=== PATIENT | male | born 1945 | race Caucasian/White ===

== ENCOUNTER → 2017-01-17 | Outpatient (CLI) | payer MEDICARE, OTHER | LOC: LAB 09:26 | DX: E11.65 Type 2 diabetes mellitus with hyperglycemia (principal) ==

== ENCOUNTER → 2017-06-15 | Outpatient (CLI) | payer MEDICARE, OTHER | LOC: LAB 08:26 | DX: E11.65 Type 2 diabetes mellitus with hyperglycemia (principal) ==

== ENCOUNTER 2017-07-11 08:35 | Outpatient (RCR) | payer MEDICARE, OTHER | END 2017-07-13 15:14 | disposition still patient (30) | LOC: OPPGERO 08:35 | DX: F33.1 Major depressive disorder, recurrent, moderate (principal); F43.21 Adjustment disorder with depressed mood ==

== ENCOUNTER 2017-07-15 09:00 | Outpatient (RCR) | payer MEDICARE, OTHER | END 2017-08-14 16:17 | LOC: OPPGERO 09:00 | DX: F33.1 Major depressive disorder, recurrent, moderate (principal); F43.21 Adjustment disorder with depressed mood ==

== ENCOUNTER → 2017-08-14 | Outpatient (CLI) | payer MEDICARE, OTHER ==
[2017-08-14 14:38] LABS: HEMATOCRIT 43.6 % (42.0-52.0); MEAN PLATELET VOLUME 10.7 fl (7.4-10.4); RED BLOOD COUNT 4.56 M/mm3 (4.20-5.60); RED CELL DISTRIBUTION WIDTH 12.9 % (11.5-14.5); WHITE BLOOD COUNT 5.4 K/mm3 (4.8-10.8)
[2017-08-14 14:42] LABS: ALBUMIN 4.1 g/dL (3.5-5.0); CALCIUM 10.2 mg/dL (8.4-10.2); POTASSIUM 4.2 mmol/L (3.6-5.0); TOTAL BILIRUBIN 0.5 mg/dL (0.2-1.3)
== END ==
LOC: LAB 14:04
PROVIDERS: Nurse Practitioner Family
DX: E03.4 Atrophy of thyroid (acquired) (principal); Z00.00 Encounter for general adult medical examination without abnormal findings; Z85.46 Personal history of malignant neoplasm of prostate; E11.9 Type 2 diabetes mellitus without complications

== ENCOUNTER 2017-08-15 08:51 | Outpatient (RCR) | payer MEDICARE, OTHER | END 2017-09-13 12:52 | LOC: OPPGERO 08:51 | DX: F33.1 Major depressive disorder, recurrent, moderate (principal) ==

== ENCOUNTER 2017-09-14 09:00 | Outpatient (RCR) | payer MEDICARE, OTHER | END 2017-10-12 15:29 | LOC: OPPGERO 09:00 | DX: F33.1 Major depressive disorder, recurrent, moderate (principal) ==

== ENCOUNTER 2017-10-16 09:00 | Outpatient (RCR) | payer MEDICARE, OTHER | END 2017-11-14 15:19 | LOC: OPPGERO 09:00 | DX: F33.1 Major depressive disorder, recurrent, moderate (principal) ==

== ENCOUNTER 2017-11-15 10:07 | Outpatient (RCR) | payer MEDICARE, OTHER | END 2017-12-12 14:21 | LOC: OPPGERO 10:07 | DX: F33.1 Major depressive disorder, recurrent, moderate (principal); F43.21 Adjustment disorder with depressed mood ==

== ENCOUNTER → 2018-01-02 | Outpatient (CLI) | payer MEDICARE, OTHER ==
[2018-01-02 15:21] LABS: HEMATOCRIT 39.9 % (42.0-52.0); HEMOGLOBIN 13.3 g/dL (13.5-18.0); MEAN CELL VOLUME 94 fl (78-100); MEAN CORPUSCULAR HEMOGLOBIN 31 pg (27-31); MEAN CORPUSCULAR HGB CONC 33 g/dL (33-37); MEAN PLATELET VOLUME 9.9 fl (7.4-10.4); PLATELET COUNT 128 K/mm3 (130-400); RED BLOOD COUNT 4.23 M/mm3 (4.20-5.60); RED CELL DISTRIBUTION WIDTH 11.9 % (11.5-14.5); WHITE BLOOD COUNT 5.9 K/mm3 (4.8-10.8)
[2018-01-02 15:36] LABS: ALBUMIN 3.7 g/dL (3.5-5.0); BUN/CREATININE RATIO 18.7 (6.0-26.0); CALCIUM 9.4 mg/dL (8.4-10.2); POTASSIUM 4.5 mmol/L (3.6-5.0); TOTAL BILIRUBIN 0.6 mg/dL (0.2-1.3)
[2018-01-02 16:11] LABS: LYMPHOCYTE 11 % (20-51); MONOCYTE 5 % (3-10); NEUTROPHILS 82 % (42-75)
== END ==
LOC: EDSTATUS 08:53 → LAB 15:11
PROVIDERS: Nurse Practitioner Family
DX: R53.81 Other malaise (principal); E03.9 Hypothyroidism, unspecified; E11.9 Type 2 diabetes mellitus without complications; F43.20 Adjustment disorder, unspecified

== ENCOUNTER → 2018-01-03 | Outpatient (CLI) | payer MEDICARE, OTHER ==
[2018-01-04 01:23] LABS: TRANSFERRIN 210 mg/dL (180-329)
== END ==
LOC: LAB 13:52
PROVIDERS: Nurse Practitioner Family
DX: D64.9 Anemia, unspecified (principal)

== ENCOUNTER → 2018-01-28 | Day surgery (SDC) | payer MEDICARE, OTHER | LOC: MSO 08:14 | DX: D64.9 Anemia, unspecified (principal); Z86.010 Personal history of colon polyps; Z87.891 Personal history of nicotine dependence; G47.33 Obstructive sleep apnea (adult) (pediatric); F32.9 Major depressive disorder, single episode, unspecified; C61 Malignant neoplasm of prostate; E11.9 Type 2 diabetes mellitus without complications; E07.9 Disorder of thyroid, unspecified; Z53.8 Procedure and treatment not carried out for other reasons | CPT/HCPCS: 00813; J2704; J3010; J7030 ==

== ENCOUNTER → 2018-02-05 | Outpatient (CLI) | payer MEDICARE, OTHER | LOC: LAB 11:52 | DX: D64.9 Anemia, unspecified (principal) ==

== ENCOUNTER → 2018-02-13 | Outpatient (CLI) | payer MEDICARE, OTHER ==
[~2018-02-13] MED LIST: ATORVASTATIN CA10 MG PO; CO Q-1050 M1 PO; COLACE100 M1 PO; FISH OIL1 IU PO; GLUCOPHAGE PO; LAMOTRIGINE25 M1 PO; LISINOPRIL10 MG PO; MASON NATURAL1000 IU PO; NATURAL IRON65 MG PO; NATURE'S BLEND500 M1 PO; NORTRIPTYLINE H50 M1 PO; PHARMASSURE FO0.4 MG PO; VENLAFAXINE HCL75 M2 PO
[2018-02-13 12:07] LABS: HEMATOCRIT 32.1 % (42.0-52.0); HEMOGLOBIN 10.2 g/dL (13.5-18.0); MEAN CELL VOLUME 90 fl (78-100); MEAN CORPUSCULAR HEMOGLOBIN 29 pg (27-31); MEAN CORPUSCULAR HGB CONC 32 g/dL (33-37); MEAN PLATELET VOLUME 9.1 fl (7.4-10.4); PLATELET COUNT 122 K/mm3 (130-400); RED BLOOD COUNT 3.57 M/mm3 (4.20-5.60); RED CELL DISTRIBUTION WIDTH 14.4 % (11.5-14.5); WHITE BLOOD COUNT 4.3 K/mm3 (4.8-10.8)
[2018-02-13 12:26] LABS: BAND 7 % (0-10); LYMPHOCYTE 9 % (20-51); MONOCYTE 5 % (3-10); NEUTROPHILS 79 % (42-75)
[2018-02-13 16:21] LABS: ALBUMIN 3.1 g/dL (3.5-5.0); BUN/CREATININE RATIO 18.1 (6.0-26.0); CALCIUM 8.7 mg/dL (8.4-10.2); POTASSIUM 4.2 mmol/L (3.6-5.0); TOTAL BILIRUBIN 0.5 mg/dL (0.2-1.3); TOTAL PROTEIN 6.2 g/dL (6.3-8.2)
[2018-02-13 21:34] LABS: C-REACTIVE PROTEIN XXX
== END ==
LOC: RAD 11:04
PROVIDERS: Nurse Practitioner Family
DX: D64.9 Anemia, unspecified (principal); E55.9 Vitamin D deficiency, unspecified; R06.09 Other forms of dyspnea; R53.83 Other fatigue; R53.81 Other malaise; R01.1 Cardiac murmur, unspecified; E61.1 Iron deficiency; R05 Cough; R60.9 Edema, unspecified; M17.0 Bilateral primary osteoarthritis of knee; M25.461 Effusion, right knee

== ENCOUNTER 2018-02-14 08:47 | Emergency (ER) | payer MEDICARE, OTHER ==
[~2018-02-14] VITALS: Ht 180.3 cm; Wt 89.1 kg
[2018-02-14] MEDS ORDERED: LAMOTRIGINE25 M1 PO (09:18)
[2018-02-14] MEDS ORDERED: GLUCOPHAGE PO (09:19)
[2018-02-14] MEDS ORDERED: ATORVASTATIN CA10 MG PO (09:19)
[2018-02-14] MEDS ORDERED: FISH OIL1 IU PO (09:19)
[2018-02-14] MEDS ORDERED: MASON NATURAL1000 IU PO (09:19)
[2018-02-14] MEDS ORDERED: CO Q-1050 M1 PO (09:19)
[2018-02-14] MEDS ORDERED: VENLAFAXINE HCL75 M2 PO (09:19)
[2018-02-14] MEDS ORDERED: LISINOPRIL10 MG PO (09:19)
[2018-02-14] MEDS ORDERED: NORTRIPTYLINE H50 M1 PO (09:19)
[2018-02-14] MEDS ORDERED: PHARMASSURE FO0.4 MG PO (09:20)
[2018-02-14] MEDS ORDERED: NATURAL IRON65 MG PO (09:20)
[2018-02-14] MEDS ORDERED: NATURE'S BLEND500 M1 PO (09:20)
[2018-02-14] MEDS ORDERED: COLACE100 M1 PO (09:20)
[2018-02-14 09:44] LABS: HEMATOCRIT 32.3 % (42.0-52.0); HEMOGLOBIN 10.1 g/dL (13.5-18.0); MEAN CELL VOLUME 90 fl (78-100); MEAN CORPUSCULAR HEMOGLOBIN 28 pg (27-31); MEAN CORPUSCULAR HGB CONC 31 g/dL (33-37); MEAN PLATELET VOLUME 9.6 fl (7.4-10.4); PLATELET COUNT 113 K/mm3 (130-400); RED BLOOD COUNT 3.61 M/mm3 (4.20-5.60); RED CELL DISTRIBUTION WIDTH 14.2 % (11.5-14.5); WHITE BLOOD COUNT 3.8 K/mm3 (4.8-10.8)
[2018-02-14 09:48] LABS: ALBUMIN 3.2 g/dL (3.5-5.0); BUN/CREATININE RATIO 17.2 (6.0-26.0); CALCIUM 8.8 mg/dL (8.4-10.2); POTASSIUM 4.2 mmol/L (3.6-5.0); TOTAL BILIRUBIN 0.5 mg/dL (0.2-1.3); TOTAL PROTEIN 6.5 g/dL (6.3-8.2)
[2018-02-14 09:52] LABS: BAND 12 % (0-10); LYMPHOCYTE 7 % (20-51); MONOCYTE 8 % (3-10); NEUTROPHILS 73 % (42-75)
[2018-02-14 10:10] LABS: URINE APPEARANCE CLEAR; URINE BILIRUBIN NEGATIVE (NEGATIVE); URINE BLOOD TRACE (NEGATIVE); URINE COLOR YELLOW; URINE GLUCOSE NEGATIVE (NEGATIVE); URINE KETONE NEGATIVE (NEGATIVE); URINE LEUKOCYTE ESTERASE NEGATIVE (NEGATIVE); URINE MUCUS PRESENT (NOT PRESENT); URINE NITRATE NEGATIVE (NEGATIVE); URINE PROTEIN(semi-quant) TRACE mg/dL (NEGATIVE); URINE UROBILINOGEN NORMAL (NORMAL); URINE WBC 0-1 /hpf (0-3)
[2018-02-14 10:17] LABS: D-DIMER 0.93 mg/L FEU (0.15-0.50)
[2018-02-14 10:17] LABS: CKMB ISOENZYME 0.8 ng/mL (0.6-3.5)
[2018-02-14 10:21] LABS: TROPONIN-I < 0.03 ng/mL (0.00-0.06)
[2018-02-14 10:49] LABS: ERYTHROCYTE SEDIMENTATION RATE 60 mm/hr (0-20)
[2018-02-14 13:30] VITALS: BP 99/76
== END 2018-02-14 12:24 | disposition short-term general hospital (02) ==
LOC: ED 08:47
PROVIDERS: Physician Assistant
DX: D64.9 Anemia, unspecified (principal); E11.9 Type 2 diabetes mellitus without complications; I95.9 Hypotension, unspecified; R01.1 Cardiac murmur, unspecified; F32.9 Major depressive disorder, single episode, unspecified; M25.562 Pain in left knee; D72.825 Bandemia; Z85.46 Personal history of malignant neoplasm of prostate; Z79.84 Long term (current) use of oral hypoglycemic drugs; Z87.891 Personal history of nicotine dependence; E78.5 Hyperlipidemia, unspecified
CPT/HCPCS: J7030; Q9967

== ENCOUNTER 2018-02-23 10:25 | Outpatient (RCR) | payer MEDICARE, OTHER ==
[~2018-02-23] VITALS: Ht 180.3 cm; Wt 83.6 kg
[2018-02-23 10:51] VITALS: BP 101/64
[2018-02-23 11:19] VITALS: BP 105/64
[2018-02-24 10:03] VITALS: BP 113/69
[2018-02-24 10:27] VITALS: BP 109/66
[2018-02-24] MEDS ORDERED: ASPIRIN ADULT L81 M3 PO (12:30)
[2018-02-24] MEDS ORDERED: ROCEPHIN 2 G2 G/VIAL IV (12:30)
[2018-02-24] MEDS ORDERED: FOLIC ACID1 MG PO (12:38)
[2018-02-24] MEDS ORDERED: DHA PO (12:44)
[2018-02-24] MEDS ORDERED: LEVOTHYROXIN0.025 MG PO (12:48)
[2018-02-25 09:33] VITALS: BP 111/75
[2018-02-25 10:18] VITALS: BP 107/77
[2018-02-26 09:57] VITALS: BP 117/63
[2018-02-26 10:35] VITALS: BP 104/72
[2018-02-27 12:01] VITALS: BP 121/77
[2018-02-28 10:13] VITALS: BP 109/65
[2018-03-01 08:52] VITALS: BP 118/77
[2018-03-02 09:44] VITALS: BP 141/80
[2018-03-02 10:36] VITALS: BP 131/68
[2018-03-03 09:43] VITALS: BP 120/72
[2018-03-03 10:00] VITALS: BP 117/80
[2018-03-04 10:20] VITALS: BP 115/86
[2018-03-04 10:41] VITALS: BP 116/79
[2018-03-05 09:36] VITALS: BP 129/74
[2018-03-06 09:34] VITALS: BP 121/76; BP 129/82
[2018-03-07 09:16] VITALS: BP 133/90
[2018-03-07 09:50] VITALS: BP 119/74
[2018-03-08 09:35] VITALS: BP 107/71
[2018-03-08 10:14] VITALS: BP 110/77
[2018-03-09 09:35] VITALS: BP 135/81
[2018-03-09 10:25] VITALS: BP 121/79
[2018-03-10 09:20] VITALS: BP 128/74
[2018-03-10 09:52] VITALS: BP 119/77
[2018-03-11 09:27] VITALS: BP 120/78
[2018-03-11 10:05] VITALS: BP 122/79
[2018-03-12 09:35] VITALS: BP 119/73
[2018-03-12 10:06] VITALS: BP 128/78
[2018-03-13 10:06] VITALS: BP 136/75
[2018-03-13 10:17] VITALS: BP 123/85
[2018-03-14 10:47] VITALS: BP 120/82; BP 137/75
[2018-03-15 09:39] VITALS: BP 117/72
[2018-03-15 10:08] VITALS: BP 110/85
--- NOTE | 2018-03-15 10:15 | NUR ---
PICC REMOVES EASILY. 42CM MEASURED; END APPEARS INTACT AND BLUNT. PRESSURE TO SITE AND THEN CLEAN GAUZE WITH TEGADERM DRESSING APPLIED. CARE INSTRUCTIONS REVIEWED WITH PATIENT AND HE VERBALIZES UNDERSTANDING.
== END 2018-03-15 20:00 | disposition home or self-care (01) ==
LOC: AMSURD
DX: R78.81 Bacteremia (principal); B95.4 Other streptococcus as the cause of diseases classified elsewhere; Z45.2 Encounter for adjustment and management of vascular access device; Z95.828 Presence of other vascular implants and grafts
CPT/HCPCS: J0696; J1644

== ENCOUNTER → 2018-02-25 | Outpatient (CLI) | payer MEDICARE, OTHER ==
[2018-02-24 10:27] VITALS: BP 109/66
[~2018-02-25] MED LIST changes: +ASPIRIN ADULT L81 M3 PO; +DHA PO; +FOLIC ACID1 MG PO; +LEVOTHYROXIN0.025 MG PO; +ROCEPHIN 2 G2 G/VIAL IV
[2018-02-25 09:44] LABS: HEMATOCRIT 36.1 % (42.0-52.0); MEAN PLATELET VOLUME 9.7 fl (7.4-10.4); RED BLOOD COUNT 3.93 M/mm3 (4.20-5.60); RED CELL DISTRIBUTION WIDTH 15.4 % (11.5-14.5); WHITE BLOOD COUNT 4.4 K/mm3 (4.8-10.8)
[2018-02-25 09:51] LABS: BUN/CREATININE RATIO 23.2 (6.0-26.0); POTASSIUM 4.5 mmol/L (3.6-5.0)
== END ==
LOC: LAB 09:20
PROVIDERS: Internal Medicine Infectious Disease
DX: R78.81 Bacteremia (principal)

== ENCOUNTER → 2018-03-04 | Outpatient (CLI) | payer MEDICARE, OTHER ==
[2018-03-03 10:00] VITALS: BP 117/80
[2018-03-04 10:24] LABS: HEMATOCRIT 36.4 % (42.0-52.0); HEMOGLOBIN 11.4 g/dL (13.5-18.0); MEAN PLATELET VOLUME 10.2 fl (7.4-10.4); RED BLOOD COUNT 3.96 M/mm3 (4.20-5.60); RED CELL DISTRIBUTION WIDTH 15.8 % (11.5-14.5)
[2018-03-04 10:42] LABS: BUN/CREATININE RATIO 20.9 (6.0-26.0); CALCIUM 9.2 mg/dL (8.4-10.2); POTASSIUM 4.2 mmol/L (3.6-5.0)
== END ==
LOC: LAB 10:16
PROVIDERS: Internal Medicine Infectious Disease
DX: R78.81 Bacteremia (principal)

== ENCOUNTER → 2018-03-11 | Outpatient (CLI) | payer MEDICARE, OTHER ==
[2018-03-10 09:52] VITALS: BP 119/77
[2018-03-11 09:50] LABS: HEMATOCRIT 36.4 % (42.0-52.0); HEMOGLOBIN 11.3 g/dL (13.5-18.0); MEAN PLATELET VOLUME 10.7 fl (7.4-10.4); RED BLOOD COUNT 3.91 M/mm3 (4.20-5.60); WHITE BLOOD COUNT 3.6 K/mm3 (4.8-10.8)
[2018-03-11 12:45] LABS: BUN/CREATININE RATIO 26.4 (6.0-26.0); CALCIUM 9.2 mg/dL (8.4-10.2); POTASSIUM 4.2 mmol/L (3.6-5.0)
== END ==
LOC: LAB 09:15
PROVIDERS: Internal Medicine Infectious Disease
DX: R78.81 Bacteremia (principal); B95.5 Unspecified streptococcus as the cause of diseases classified elsewhere

== ENCOUNTER → 2018-03-28 | Outpatient (CLI) | payer MEDICARE, OTHER ==
[2018-03-15 10:08] VITALS: BP 110/85
== END ==
LOC: LAB 08:54
DX: R78.81 Bacteremia (principal); A49.1 Streptococcal infection, unspecified site

== ENCOUNTER → 2018-04-09 | Outpatient (CLI) | payer MEDICARE, OTHER ==
[2018-03-15 10:08] VITALS: BP 110/85
[2018-04-09 12:07] LABS: HEMATOCRIT 40.3 % (42.0-52.0); MEAN PLATELET VOLUME 10.4 fl (7.4-10.4); RED BLOOD COUNT 4.52 M/mm3 (4.20-5.60); RED CELL DISTRIBUTION WIDTH 15.8 % (11.5-14.5); WHITE BLOOD COUNT 4.8 K/mm3 (4.8-10.8)
[2018-04-09 12:12] LABS: BUN/CREATININE RATIO 25.9 (6.0-26.0); CALCIUM 9.2 mg/dL (8.4-10.2); POTASSIUM 4.1 mmol/L (3.6-5.0)
== END ==
LOC: LAB 11:36
PROVIDERS: Internal Medicine Infectious Disease
DX: Z01.812 Encounter for preprocedural laboratory examination (principal); R78.81 Bacteremia; B95.4 Other streptococcus as the cause of diseases classified elsewhere

== ENCOUNTER → 2018-04-22 | Outpatient (CLI) | payer MEDICARE, OTHER ==
[2018-04-22 20:11] LABS: PROTHROMBIN TIME 24.4 SECONDS (9.0-12.0)
== END ==
LOC: LAB 12:10
PROVIDERS: Internal Medicine Infectious Disease
DX: Z13.9 Encounter for screening, unspecified (principal); Z95.2 Presence of prosthetic heart valve

== ENCOUNTER 2018-05-13 14:53 | Outpatient (RCR) | payer MEDICARE, OTHER | END 2018-08-11 | disposition home or self-care (01) | LOC: CARDREHAB | DX: Z48.812 Encounter for surgical aftercare following surgery on the circulatory system (principal); Z95.2 Presence of prosthetic heart valve ==

== ENCOUNTER → 2018-05-13 | Outpatient (CLI) | payer MEDICARE, OTHER ==
[2018-05-13 15:00] LABS: PROTHROMBIN TIME 22.3 SECONDS (9.0-12.0)
== END ==
LOC: LAB 14:19
DX: Z13.9 Encounter for screening, unspecified (principal); Z95.2 Presence of prosthetic heart valve

== ENCOUNTER → 2018-05-27 | Outpatient (CLI) | payer MEDICARE, OTHER | LOC: LAB 10:28 | DX: Z98.890 Other specified postprocedural states (principal); Z95.2 Presence of prosthetic heart valve ==

== ENCOUNTER → 2018-06-03 | Outpatient (CLI) | payer MEDICARE, OTHER ==
[2018-06-03 15:15] LABS: PROTHROMBIN TIME 11.6 SECONDS (9.0-12.0)
== END ==
LOC: LAB 13:54
PROVIDERS: Physician Assistant
DX: Z95.2 Presence of prosthetic heart valve (principal)

== ENCOUNTER → 2018-06-14 | Outpatient (CLI) | payer MEDICARE, OTHER ==
[2018-06-14 11:14] LABS: PROTHROMBIN TIME 19.5 SECONDS (9.0-12.0)
== END ==
LOC: LAB 10:49
PROVIDERS: Family Medicine
DX: Z86.79 Personal history of other diseases of the circulatory system (principal); Z95.2 Presence of prosthetic heart valve; Z98.890 Other specified postprocedural states

== ENCOUNTER → 2018-07-01 | Outpatient (CLI) | payer MEDICARE, OTHER ==
[2018-07-01 10:46] LABS: PROTHROMBIN TIME 17.9 SECONDS (9.0-12.0)
== END ==
LOC: LAB 10:09
PROVIDERS: Physician Assistant
DX: Z09 Encounter for follow-up examination after completed treatment for conditions other than malignant neoplasm (principal); Z95.2 Presence of prosthetic heart valve; Z86.79 Personal history of other diseases of the circulatory system; Z98.890 Other specified postprocedural states

== ENCOUNTER → 2018-08-14 | Outpatient (CLI) | payer MEDICARE, OTHER ==
[2018-08-14 13:28] LABS: URINE APPEARANCE CLEAR; URINE BILIRUBIN NEGATIVE (NEGATIVE); URINE BLOOD NEGATIVE (NEGATIVE); URINE COLOR YELLOW; URINE GLUCOSE NEGATIVE (NEGATIVE); URINE KETONE NEGATIVE (NEGATIVE); URINE LEUKOCYTE ESTERASE NEGATIVE (NEGATIVE); URINE NITRATE NEGATIVE (NEGATIVE); URINE PROTEIN(semi-quant) TRACE mg/dL (NEGATIVE); URINE UROBILINOGEN NORMAL (NORMAL)
== END ==
LOC: LAB 12:08
PROVIDERS: Physician Assistant
DX: Z20.2 Contact with and (suspected) exposure to infections with a predominantly sexual mode of transmission (principal)

== ENCOUNTER 2018-12-02 09:42 | Emergency (ER) | payer MEDICARE, OTHER ==
[~2018-12-02] VITALS: Ht 180.3 cm; Wt 98.2 kg
[2018-12-02] MEDS ORDERED: LOPRESSOR 225 MG/TAB PO (09:51)
[2018-12-02 10:25] LABS: EOS # 0.1 (0.04-0.40); EOS % 2.1 % (0.0-4.0); HEMATOCRIT 46.6 % (42.0-52.0); HEMOGLOBIN 15.1 g/dL (13.5-18.0); LYMPH# 0.9 (1.50-4.00); MEAN CELL VOLUME 95 fl (78-100); MEAN CORPUSCULAR HEMOGLOBIN 31 pg (27-31); MEAN CORPUSCULAR HGB CONC 32 g/dL (33-37); MEAN PLATELET VOLUME 11.2 fl (7.4-10.4); MONO # 0.5 (0.20-0.80); NEU # 3.5 (1.40-6.50); PLATELET COUNT 122 K/mm3 (130-400); RED BLOOD COUNT 4.93 M/mm3 (4.20-5.60); RED CELL DISTRIBUTION WIDTH 12.7 % (11.5-14.5); WHITE BLOOD COUNT 5.1 K/mm3 (4.8-10.8)
[2018-12-02 10:33] LABS: ALBUMIN 4.4 g/dL (3.5-5.0); POTASSIUM 4.7 mmol/L (3.6-5.0); TOTAL BILIRUBIN 0.5 mg/dL (0.2-1.3); TOTAL PROTEIN 7.2 g/dL (6.3-8.2)
[2018-12-02 10:36] LABS: URINE APPEARANCE CLEAR; URINE BILIRUBIN NEGATIVE (NEGATIVE); URINE BLOOD NEGATIVE (NEGATIVE); URINE COLOR YELLOW; URINE KETONE NEGATIVE (NEGATIVE); URINE LEUKOCYTE ESTERASE NEGATIVE (NEGATIVE); URINE MUCUS PRESENT (NOT PRESENT); URINE NITRATE NEGATIVE (NEGATIVE); URINE PROTEIN(semi-quant) NEGATIVE (NEGATIVE); URINE UROBILINOGEN NORMAL (NORMAL); URINE WBC 0-1 /hpf (0-3)
[2018-12-02] MEDS ORDERED: COLACE CLEAR50 MG PO (11:51)
[2018-12-02] MEDS ORDERED: ULTRAM50 M1 PO (11:53)
[2018-12-02] MEDS ORDERED: TYLENOL 325MG325 MG PO (11:56)
[2018-12-02] MEDS ORDERED: ZESTRIL10 M1 PO (11:56)
[2018-12-02] MEDS ORDERED: MASON NATURAL500 MG PO (11:57)
[2018-12-02] MEDS ORDERED: COQ-10100 MG PO (11:58)
[2018-12-02] MEDS ORDERED: LISINOPRIL10 MG PO (12:03)
[2018-12-02 12:10] VITALS: BP 146/108
== END 2018-12-02 12:13 | disposition home or self-care (01) ==
LOC: ED 09:42
PROVIDERS: Nurse Practitioner Primary Care
DX: I10 Essential (primary) hypertension (principal); I35.0 Nonrheumatic aortic (valve) stenosis; E07.9 Disorder of thyroid, unspecified; Z79.82 Long term (current) use of aspirin; Z79.84 Long term (current) use of oral hypoglycemic drugs

== ENCOUNTER → 2018-12-04 | Outpatient (CLI) | payer MEDICARE, OTHER ==
[2018-12-02 12:10] VITALS: BP 146/108
[~2018-12-04] MED LIST changes: +COLACE CLEAR50 MG PO; +COQ-10100 MG PO; +LOPRESSOR 225 MG/TAB PO; +MASON NATURAL500 MG PO; +TYLENOL 325MG325 MG PO; +ULTRAM50 M1 PO; +ZESTRIL10 M1 PO
== END ==
LOC: LAB 08:44
DX: E11.9 Type 2 diabetes mellitus without complications (principal)

== ENCOUNTER → 2018-12-30 | Outpatient (CLI) | payer MEDICARE, OTHER ==
[2018-12-02 12:10] VITALS: BP 146/108
== END ==
LOC: RAD 17:27
DX: I35.9 Nonrheumatic aortic valve disorder, unspecified (principal); R06.02 Shortness of breath; Z95.2 Presence of prosthetic heart valve

== ENCOUNTER → 2019-02-18 | Outpatient (CLI) | payer MEDICARE, OTHER ==
[2019-02-18 19:08] LABS: URINE APPEARANCE CLEAR; URINE COLOR YELLOW
[2019-02-18 19:09] LABS: URINE BILIRUBIN NEGATIVE (NEGATIVE); URINE BLOOD NEGATIVE (NEGATIVE); URINE GLUCOSE NEGATIVE (NEGATIVE); URINE KETONE NEGATIVE (NEGATIVE); URINE LEUKOCYTE ESTERASE NEGATIVE (NEGATIVE); URINE NITRATE NEGATIVE (NEGATIVE); URINE PROTEIN(semi-quant) TRACE mg/dL (NEGATIVE); URINE UROBILINOGEN NORMAL (NORMAL); URINE WBC 0-1 /hpf (0-3)
== END ==
LOC: LAB 17:11
PROVIDERS: Family Medicine
DX: R30.0 Dysuria (principal)

== ENCOUNTER → 2019-04-05 | Outpatient (CLI) | payer MEDICARE, OTHER | LOC: LAB 12:22 | DX: R53.81 Other malaise (principal); E11.9 Type 2 diabetes mellitus without complications ==

== ENCOUNTER → 2019-06-17 | Outpatient (CLI) | payer MEDICARE, OTHER ==
[2019-06-17 09:39] LABS: EOS # 0.1 (0.04-0.40); EOS % 2.9 % (0.0-4.0); HEMATOCRIT 42.1 % (42.0-52.0); HEMOGLOBIN 13.9 g/dL (13.5-18.0); LYMPH# 1.1 (1.50-4.00); MEAN CELL VOLUME 96 fl (78-100); MEAN CORPUSCULAR HEMOGLOBIN 32 pg (27-31); MEAN CORPUSCULAR HGB CONC 33 g/dL (33-37); MEAN PLATELET VOLUME 11.6 fl (7.4-10.4); MONO # 0.3 (0.20-0.80); NEU # 2.2 (1.40-6.50); PLATELET COUNT 102 K/mm3 (130-400); RED BLOOD COUNT 4.37 M/mm3 (4.20-5.60); RED CELL DISTRIBUTION WIDTH 12.2 % (11.5-14.5); WHITE BLOOD COUNT 3.7 K/mm3 (4.8-10.8)
[2019-06-17 09:58] LABS: ALBUMIN 3.9 g/dL (3.4-4.8); POTASSIUM 4.4 mmol/L (3.5-5.1)
[2019-06-17 09:59] LABS: CALCIUM 9.4 mg/dL (8.3-10.5)
[2019-06-17 10:01] LABS: TOTAL PROTEIN 6.5 g/dL (6.2-8.1)
[2019-06-17 10:02] LABS: TOTAL BILIRUBIN 0.2 mg/dL (0.2-1.2)
[2019-06-17 10:26] LABS: URINE APPEARANCE CLEAR; URINE BILIRUBIN NEGATIVE (NEGATIVE); URINE BLOOD NEGATIVE (NEGATIVE); URINE COLOR YELLOW; URINE GLUCOSE NEGATIVE (NEGATIVE); URINE KETONE NEGATIVE (NEGATIVE); URINE LEUKOCYTE ESTERASE NEGATIVE (NEGATIVE); URINE NITRATE NEGATIVE (NEGATIVE); URINE PROTEIN(semi-quant) NEGATIVE (NEGATIVE); URINE UROBILINOGEN NORMAL (NORMAL)
[2019-06-17 10:27] LABS: URINE WBC 0-1 /hpf (0-3)
== END ==
LOC: LAB 08:57
PROVIDERS: Family Medicine
DX: D69.6 Thrombocytopenia, unspecified (principal); D72.819 Decreased white blood cell count, unspecified; E11.9 Type 2 diabetes mellitus without complications; R30.0 Dysuria; R53.81 Other malaise

== ENCOUNTER 2019-12-16 09:42 | Emergency (ER) | payer MEDICARE, OTHER ==
[~2019-12-16 09:42] MED LIST changes: -ASPIRIN ADULT L81 M3 PO; +ASPIRIN E.C. 8181 MG PO; -COLACE CLEAR50 MG PO; +COLACE100 M1; -FOLIC ACID1 MG PO; -MASON NATURAL1000 IU PO; -VENLAFAXINE HCL75 M2 PO; +VENLAFAXINE HYD75 M2 PO; +VITAMIN D325 MC1 PO
[2019-12-16 10:28] LABS: EOS # 0.1 (0.04-0.40); EOS % 3.2 % (0.0-4.0); HEMATOCRIT 43.8 % (42.0-52.0); HEMOGLOBIN 14.2 g/dL (13.5-18.0); MEAN CELL VOLUME 92 fl (78-100); MEAN CORPUSCULAR HEMOGLOBIN 30 pg (27-31); MEAN CORPUSCULAR HGB CONC 32 g/dL (33-37); MEAN PLATELET VOLUME 10.7 fl (7.4-10.4); MONO # 0.3 (0.20-0.80); PLATELET COUNT 119 K/mm3 (130-400); RED BLOOD COUNT 4.75 M/mm3 (4.20-5.60); RED CELL DISTRIBUTION WIDTH 12.7 % (11.5-14.5); WHITE BLOOD COUNT 3.4 K/mm3 (4.8-10.8)
[2019-12-16 10:36] LABS: ALBUMIN 4.2 g/dL (3.4-4.8)
[2019-12-16 10:37] LABS: SODIUM 140 mmol/L (136-145)
[2019-12-16 10:38] LABS: CALCIUM 9.3 mg/dL (8.3-10.5)
[2019-12-16 10:39] LABS: GLUCOSE 126 mg/dL (75-110); TOTAL PROTEIN 6.7 g/dL (6.2-8.1)
[2019-12-16 10:40] LABS: CARBON DIOXIDE 24 mmol/L (23-31)
[2019-12-16 10:41] LABS: TOTAL BILIRUBIN 0.4 mg/dL (0.2-1.2)
[2019-12-16 10:44] LABS: AST-SGOT 19 U/L (5-34)
[2019-12-16 10:46] LABS: ALT/SGPT 20 U/L (0-55)
[2019-12-16 10:52] LABS: CKMB ISOENZYME 2.7 ng/mL (0.0-3.5)
[2019-12-16 10:55] LABS: TROPONIN-I < 0.03 ng/mL (<0.030)
[2019-12-16 12:34] VITALS: BP 157/106
[2019-12-16] MEDS ORDERED: IRBESARTAN75 MG PO (12:42)
[2019-12-16] MEDS ORDERED: FIBER500 MG (12:45)
== END 2019-12-16 12:38 | disposition home or self-care (01) ==
LOC: ED 09:42
PROVIDERS: Nurse Practitioner Family
DX: R07.89 Other chest pain (principal); E11.9 Type 2 diabetes mellitus without complications; I10 Essential (primary) hypertension; E78.5 Hyperlipidemia, unspecified; G47.33 Obstructive sleep apnea (adult) (pediatric); F32.9 Major depressive disorder, single episode, unspecified; Z79.82 Long term (current) use of aspirin; Z79.84 Long term (current) use of oral hypoglycemic drugs; Z85.46 Personal history of malignant neoplasm of prostate; Z95.2 Presence of prosthetic heart valve

== ENCOUNTER → 2020-04-02 | Outpatient (CLI) | payer MEDICARE, OTHER ==
[~2020-04-02] MED LIST changes: +FIBER500 MG; +IRBESARTAN75 MG PO
== END ==
LOC: LAB 15:12
DX: E11.9 Type 2 diabetes mellitus without complications (principal); R53.81 Other malaise

== ENCOUNTER → 2020-06-22 | Outpatient (CLI) | payer MEDICARE, OTHER ==
[2020-06-22 08:17] LABS: EOS # 0.2 (0.04-0.40); EOS % 4.2 % (0.0-4.0); HEMATOCRIT 43.5 % (42.0-52.0); HEMOGLOBIN 14.4 g/dL (13.5-18.0); LYMPH# 0.9 (1.50-4.00); MEAN CELL VOLUME 95 fl (78-100); MEAN CORPUSCULAR HEMOGLOBIN 31 pg (27-31); MEAN CORPUSCULAR HGB CONC 33 g/dL (33-37); MEAN PLATELET VOLUME 10.7 fl (7.4-10.4); MONO # 0.3 (0.20-0.80); NEU # 2.5 (1.40-6.50); PLATELET COUNT 105 K/mm3 (130-400); RED BLOOD COUNT 4.58 M/mm3 (4.20-5.60); RED CELL DISTRIBUTION WIDTH 13.3 % (11.5-14.5); WHITE BLOOD COUNT 3.9 K/mm3 (4.8-10.8)
[2020-06-22 08:27] LABS: POTASSIUM 4.2 mmol/L (3.5-5.1)
[2020-06-22 08:30] LABS: TOTAL PROTEIN 6.3 g/dL (6.2-8.1)
[2020-06-22 08:31] LABS: TOTAL BILIRUBIN 0.4 mg/dL (0.2-1.2)
[2020-06-22 08:46] LABS: PH-URINE 5.5 (5.0 - 8.0); URINE APPEARANCE CLEAR; URINE BILIRUBIN NEGATIVE (NEGATIVE); URINE BLOOD NEGATIVE (NEGATIVE); URINE COLOR YELLOW; URINE GLUCOSE NEGATIVE (NEGATIVE); URINE KETONE NEGATIVE (NEGATIVE); URINE LEUKOCYTE ESTERASE NEGATIVE (NEGATIVE); URINE NITRATE NEGATIVE (NEGATIVE); URINE PROTEIN(semi-quant) NEGATIVE (NEGATIVE); URINE UROBILINOGEN NORMAL (NORMAL)
[2020-06-22 08:47] LABS: URINE MUCUS PRESENT (NOT PRESENT); URINE WBC 0-1 /hpf (0-3)
== END ==
LOC: LAB 07:59
PROVIDERS: Family Medicine
DX: E11.9 Type 2 diabetes mellitus without complications (principal); R53.81 Other malaise

== ENCOUNTER → 2020-09-13 | Outpatient (CLI) | payer MEDICARE, OTHER | LOC: VAS 15:23 → RAD 15:45 | DX: R06.00 Dyspnea, unspecified (principal) ==

== ENCOUNTER → 2020-09-24 | Outpatient (CLI) | payer MEDICARE, OTHER | LOC: CARDREHAB 10:57 → CARDLAB 14:17 | DX: E11.9 Type 2 diabetes mellitus without complications (principal); I25.10 Atherosclerotic heart disease of native coronary artery without angina pectoris; I10 Essential (primary) hypertension; J44.9 Chronic obstructive pulmonary disease, unspecified; I35.9 Nonrheumatic aortic valve disorder, unspecified | CPT/HCPCS: A9500 ==

== ENCOUNTER → 2020-11-30 | Outpatient (CLI) | payer MEDICARE, OTHER ==
[2020-11-30 10:44] LABS: EOS # 0.1 (0.04-0.40); EOS % 3.1 % (0.0-4.0); HEMATOCRIT 42.8 % (42.0-52.0); HEMOGLOBIN 14.2 g/dL (13.5-18.0); LYMPH# 0.8 (1.50-4.00); MEAN CELL VOLUME 94 fl (78-100); MEAN CORPUSCULAR HEMOGLOBIN 31 pg (27-31); MEAN CORPUSCULAR HGB CONC 33 g/dL (33-37); MEAN PLATELET VOLUME 10.7 fl (7.4-10.4); MONO # 0.3 (0.20-0.80); NEU # 2.3 (1.40-6.50); PLATELET COUNT 119 K/mm3 (130-400); RED BLOOD COUNT 4.55 M/mm3 (4.20-5.60); RED CELL DISTRIBUTION WIDTH 12.4 % (11.5-14.5); WHITE BLOOD COUNT 3.6 K/mm3 (4.8-10.8)
[2020-11-30 10:47] LABS: ALBUMIN 4.3 g/dL (3.4-4.8)
[2020-11-30 10:48] LABS: POTASSIUM 4.4 mmol/L (3.5-5.1)
[2020-11-30 10:49] LABS: CALCIUM 9.3 mg/dL (8.3-10.5)
[2020-11-30 10:52] LABS: TOTAL BILIRUBIN 0.4 mg/dL (0.2-1.2)
== END ==
LOC: RAD 10:04 → LAB 10:04
PROVIDERS: Nurse Practitioner
DX: E11.9 Type 2 diabetes mellitus without complications (principal); E03.9 Hypothyroidism, unspecified; R06.00 Dyspnea, unspecified; Z87.891 Personal history of nicotine dependence; Z95.2 Presence of prosthetic heart valve

== ENCOUNTER → 2020-12-07 | Outpatient (CLI) | payer MEDICARE, OTHER ==
[~2020-12-07] MED LIST changes: +DULOXETINE30 MG PO; +EPIPEN 2-PAK1 MG/ML MR; +HYGROTON 2525 MG/TAB PO; +MEDI-FIRST ASP325 MG PO; +METOPROLOL SUCC50 M1 PO; +NORVASC 10MG10 MG PO; +PREDNISONE20 MG PO; +SYNTHROID25 MCG PO; +TEST STRIPS1 EACH MC; +ZINC50 M4 PO
== END ==
LOC: RAD 10:42
DX: I67.82 Cerebral ischemia (principal); G31.9 Degenerative disease of nervous system, unspecified

== ENCOUNTER → 2021-02-18 | Outpatient (CLI) | payer MEDICARE, OTHER ==
[2021-02-18 15:23] LABS: ALBUMIN 4.2 g/dL (3.4-4.8); POTASSIUM 4.5 mmol/L (3.5-5.1)
[2021-02-18 15:24] LABS: CALCIUM 9.8 mg/dL (8.3-10.5)
[2021-02-18 15:28] LABS: TOTAL BILIRUBIN 0.3 mg/dL (0.2-1.2)
== END ==
LOC: LAB 14:29
PROVIDERS: Family Medicine
DX: E11.9 Type 2 diabetes mellitus without complications (principal); E03.9 Hypothyroidism, unspecified

== ENCOUNTER 2021-04-28 05:02 | Emergency (ER) | payer MEDICARE, OTHER ==
[~2021-04-28 05:02] MED LIST changes: -DULOXETINE30 MG PO; -EPIPEN 2-PAK1 MG/ML MR; -HYGROTON 2525 MG/TAB PO; -MEDI-FIRST ASP325 MG PO; -METOPROLOL SUCC50 M1 PO; -NORVASC 10MG10 MG PO; -PREDNISONE20 MG PO; -SYNTHROID25 MCG PO; -TEST STRIPS1 EACH MC; -ZINC50 M4 PO
[2021-04-28 06:16] LABS: BASO # 0.02 (0.02-0.10); EOS # 0.07 (0.04-0.40); EOS % 1.6 % (0.0-4.0); HEMATOCRIT 44.7 % (42.0-52.0); HEMOGLOBIN 15.1 g/dL (13.5-18.0); LYMPH# 1.54 (1.50-4.00); MEAN CELL VOLUME 94 fl (78-100); MEAN CORPUSCULAR HEMOGLOBIN 32 pg (27-31); MEAN CORPUSCULAR HGB CONC 34 g/dL (33-37); MEAN PLATELET VOLUME 11.5 fl (7.4-10.4); MONO # 0.34 (0.20-0.80); NEU # 2.27 (1.40-6.50); PLATELET COUNT 146 K/mm3 (130-400); RED BLOOD COUNT 4.76 M/mm3 (4.20-5.60); RED CELL DISTRIBUTION WIDTH 12.9 % (11.5-14.5); WHITE BLOOD COUNT 4.3 K/mm3 (4.8-10.8)
[2021-04-28] MEDS ORDERED: DULOXETINE30 MG PO (06:23)
[2021-04-28 06:24] LABS: POTASSIUM 3.7 mmol/L (3.5-5.1)
[2021-04-28 06:25] LABS: CALCIUM 9.3 mg/dL (8.3-10.5)
[2021-04-28] MEDS ORDERED: NORVASC 10MG10 MG PO (06:25)
[2021-04-28] MEDS ORDERED: MEDI-FIRST ASP325 MG PO (06:26)
[2021-04-28] MEDS ORDERED: HYGROTON 2525 MG/TAB PO (06:27)
[2021-04-28] MEDS ORDERED: SYNTHROID25 MCG PO (06:27)
[2021-04-28] MEDS ORDERED: METOPROLOL SUCC50 M1 PO (06:28)
[2021-04-28] MEDS ORDERED: ZINC50 M4 PO (06:30)
[2021-04-28] MEDS ORDERED: PREDNISONE20 MG PO (08:02)
[2021-04-28] MEDS ORDERED: EPIPEN 2-PAK1 MG/ML MR (08:02)
[2021-04-28] MEDS ORDERED: TEST STRIPS1 EACH MC (08:13)
[2021-04-28 08:46] VITALS: BP 114/74
== END 2021-04-28 08:15 | disposition home or self-care (01) ==
LOC: ED 05:02
PROVIDERS: Physician Assistant
DX: T78.2XXA Anaphylactic shock, unspecified, initial encounter (principal); I35.0 Nonrheumatic aortic (valve) stenosis; E11.9 Type 2 diabetes mellitus without complications; I25.10 Atherosclerotic heart disease of native coronary artery without angina pectoris; F32.9 Major depressive disorder, single episode, unspecified; E78.5 Hyperlipidemia, unspecified; Z79.84 Long term (current) use of oral hypoglycemic drugs; Z79.82 Long term (current) use of aspirin; Z79.899 Other long term (current) drug therapy; X58.XXXA Exposure to other specified factors, initial encounter
CPT/HCPCS: J0171; J2930; J3490

== ENCOUNTER → 2021-05-19 | Outpatient (CLI) | payer MEDICARE, OTHER ==
[~2021-05-19] MED LIST changes: +DULOXETINE30 MG PO; +EPIPEN 2-PAK1 MG/ML MR; +HYGROTON 2525 MG/TAB PO; +MEDI-FIRST ASP325 MG PO; +METOPROLOL SUCC50 M1 PO; +NORVASC 10MG10 MG PO; +PREDNISONE20 MG PO; +SYNTHROID25 MCG PO; +TEST STRIPS1 EACH MC; +ZINC50 M4 PO
== END ==
LOC: RAD 11:30
DX: M25.461 Effusion, right knee (principal)

== ENCOUNTER → 2021-09-12 | Outpatient (CLI) | payer MEDICARE, OTHER | LOC: LAB 14:13 | DX: E11.9 Type 2 diabetes mellitus without complications (principal) ==

== ENCOUNTER → 2021-10-06 | Outpatient (CLI) | payer MEDICARE, OTHER | LOC: RAD 15:45 | DX: M67.814 Other specified disorders of tendon, left shoulder (principal) ==

== ENCOUNTER → 2022-02-28 | Outpatient (CLI) | payer MEDICARE, OTHER ==
[2022-02-28 12:54] LABS: ALBUMIN 4.1 g/dL (3.4-4.8); POTASSIUM 3.9 mmol/L (3.5-5.1)
[2022-02-28 12:56] LABS: CALCIUM 9.9 mg/dL (8.3-10.5)
[2022-02-28 12:57] LABS: TOTAL PROTEIN 6.8 g/dL (6.2-8.1)
[2022-02-28 12:59] LABS: TOTAL BILIRUBIN 0.5 mg/dL (0.2-1.2)
== END ==
LOC: LAB 12:15
PROVIDERS: Family Medicine
DX: I35.9 Nonrheumatic aortic valve disorder, unspecified (principal); E03.9 Hypothyroidism, unspecified; E11.9 Type 2 diabetes mellitus without complications; C61 Malignant neoplasm of prostate; G56.03 Carpal tunnel syndrome, bilateral upper limbs; I67.82 Cerebral ischemia; I25.10 Atherosclerotic heart disease of native coronary artery without angina pectoris; F32.9 Major depressive disorder, single episode, unspecified; E78.00 Pure hypercholesterolemia, unspecified; I10 Essential (primary) hypertension; G47.00 Insomnia, unspecified; E66.9 Obesity, unspecified; M19.90 Unspecified osteoarthritis, unspecified site; G47.30 Sleep apnea, unspecified; Z79.01 Long term (current) use of anticoagulants

== ENCOUNTER → 2022-03-14 | Outpatient (CLI) | payer MEDICARE, OTHER | LOC: LAB 13:58 | DX: I35.9 Nonrheumatic aortic valve disorder, unspecified (principal); E03.9 Hypothyroidism, unspecified; C61 Malignant neoplasm of prostate; G56.03 Carpal tunnel syndrome, bilateral upper limbs; I67.82 Cerebral ischemia; I25.10 Atherosclerotic heart disease of native coronary artery without angina pectoris; F32.9 Major depressive disorder, single episode, unspecified; E78.00 Pure hypercholesterolemia, unspecified; I10 Essential (primary) hypertension; G47.00 Insomnia, unspecified; E66.9 Obesity, unspecified; M19.90 Unspecified osteoarthritis, unspecified site; G47.30 Sleep apnea, unspecified; E11.9 Type 2 diabetes mellitus without complications; J30.2 Other seasonal allergic rhinitis; Z79.01 Long term (current) use of anticoagulants ==

== ENCOUNTER → 2022-04-24 | Outpatient (CLI) | payer MEDICARE, OTHER | LOC: LAB 09:16 | DX: E11.9 Type 2 diabetes mellitus without complications (principal); R79.89 Other specified abnormal findings of blood chemistry ==

== ENCOUNTER → 2022-09-13 | Outpatient (CLI) | payer MEDICARE ==
[~2022-09-13] MED LIST changes: +PREDNISONE20 M1 PO
== END ==
LOC: CARDREHAB 13:29
DX: G47.33 Obstructive sleep apnea (adult) (pediatric) (principal)
CPT/HCPCS: G0399

== ENCOUNTER 2022-09-14 05:17 | Emergency (ER) | payer MEDICARE ==
[~2022-09-14] VITALS: Ht 180.3 cm; Wt 95.5 kg
[~2022-09-14 05:17] MED LIST changes: -PREDNISONE20 M1 PO
[2022-09-14 06:21] LABS: BASO # 0.01 K/mm3 (0.02-0.10); EOS # 0.09 K/mm3 (0.04-0.40); EOS % 1.6 % (0.0-4.0); HEMATOCRIT 45.7 % (42.0-52.0); HEMOGLOBIN 15.1 g/dL (13.5-18.0); LYMPH# 1.17 K/mm3 (1.50-4.00); MEAN CELL VOLUME 95 fl (78-100); MEAN CORPUSCULAR HEMOGLOBIN 31 pg (27-31); MEAN CORPUSCULAR HGB CONC 33 g/dL (33-37); MEAN PLATELET VOLUME 10.8 fl (7.4-10.4); MONO # 0.37 K/mm3 (0.20-0.80); NEU # 4.03 K/mm3 (1.40-6.50); PLATELET COUNT 120 K/mm3 (130-400); RED BLOOD COUNT 4.81 M/mm3 (4.20-5.60); RED CELL DISTRIBUTION WIDTH 12.1 % (11.5-14.5); WHITE BLOOD COUNT 5.7 K/mm3 (4.8-10.8)
[2022-09-14 06:41] LABS: ALBUMIN 3.7 g/dL (3.4-4.8); POTASSIUM 3.4 mmol/L (3.5-5.1)
[2022-09-14 06:42] LABS: CALCIUM 9.4 mg/dL (8.3-10.5)
[2022-09-14 06:45] LABS: TOTAL BILIRUBIN 0.5 mg/dL (0.2-1.2)
[2022-09-14] MEDS ORDERED: PREDNISONE20 M1 PO (07:12)
[2022-09-14] MEDS ORDERED: EPIPEN 2-PAK1 MG/ML MR (07:12)
[2022-09-14 07:25] VITALS: BP 100/82
== END 2022-09-14 07:35 | disposition home or self-care (01) ==
LOC: ED 05:17
PROVIDERS: Family Medicine
DX: T78.40XA Allergy, unspecified, initial encounter (principal); E66.9 Obesity, unspecified; Z68.29 Body mass index [BMI] 29.0-29.9, adult; Z87.891 Personal history of nicotine dependence
CPT/HCPCS: J2930

== ENCOUNTER → 2023-01-17 | Outpatient (CLI) | payer MEDICARE ==
[~2023-01-17] MED LIST changes: +PREDNISONE20 M1 PO
== END ==
LOC: LAB 10:13
DX: C61 Malignant neoplasm of prostate (principal); I35.9 Nonrheumatic aortic valve disorder, unspecified; I67.82 Cerebral ischemia; I25.10 Atherosclerotic heart disease of native coronary artery without angina pectoris; I10 Essential (primary) hypertension; M19.90 Unspecified osteoarthritis, unspecified site; J30.2 Other seasonal allergic rhinitis; G56.03 Carpal tunnel syndrome, bilateral upper limbs; F32.9 Major depressive disorder, single episode, unspecified; E78.00 Pure hypercholesterolemia, unspecified; E03.9 Hypothyroidism, unspecified; G47.00 Insomnia, unspecified; E11.9 Type 2 diabetes mellitus without complications; E66.9 Obesity, unspecified; G47.30 Sleep apnea, unspecified; Z79.01 Long term (current) use of anticoagulants

== ENCOUNTER → 2023-06-28 | Outpatient (CLI) | payer MEDICARE ==
[2023-06-28 09:15] LABS: POTASSIUM 3.9 mmol/L (3.5-5.1)
[2023-06-28 09:16] LABS: CALCIUM 9.3 mg/dL (8.3-10.5)
[2023-06-28 10:11] LABS: BASO # 0.02 K/mm3 (0.02-0.10); EOS # 0.11 K/mm3 (0.04-0.40); EOS % 2.8 % (0.0-4.0); HEMATOCRIT 44.4 % (42.0-52.0); HEMOGLOBIN 14.4 g/dL (13.5-18.0); MEAN CELL VOLUME 98 fl (78-100); MEAN CORPUSCULAR HEMOGLOBIN 32 pg (27-31); MEAN CORPUSCULAR HGB CONC 32 g/dL (33-37); MEAN PLATELET VOLUME 12.1 fl (7.4-10.4); MONO # 0.36 K/mm3 (0.20-0.80); NEU # 2.38 K/mm3 (1.40-6.50); PLATELET COUNT 105 K/mm3 (130-400); RED BLOOD COUNT 4.53 M/mm3 (4.20-5.60); RED CELL DISTRIBUTION WIDTH 12.7 % (11.5-14.5)
== END ==
LOC: LAB 08:48
PROVIDERS: Family Medicine
DX: C61 Malignant neoplasm of prostate (principal); I35.9 Nonrheumatic aortic valve disorder, unspecified; I67.82 Cerebral ischemia; I25.10 Atherosclerotic heart disease of native coronary artery without angina pectoris; G56.02 Carpal tunnel syndrome, left upper limb; F32.9 Major depressive disorder, single episode, unspecified; E78.00 Pure hypercholesterolemia, unspecified; E03.9 Hypothyroidism, unspecified; I10 Essential (primary) hypertension; G47.00 Insomnia, unspecified; Z79.01 Long term (current) use of anticoagulants; E66.9 Obesity, unspecified; M19.90 Unspecified osteoarthritis, unspecified site; G47.30 Sleep apnea, unspecified; E11.9 Type 2 diabetes mellitus without complications; J30.2 Other seasonal allergic rhinitis; R79.89 Other specified abnormal findings of blood chemistry; L98.9 Disorder of the skin and subcutaneous tissue, unspecified; M54.2 Cervicalgia; D69.6 Thrombocytopenia, unspecified

== ENCOUNTER → 2023-06-28 | Outpatient (CLI) | payer MEDICARE | LOC: RAD 11:16 | DX: M50.322 Other cervical disc degeneration at C5-C6 level (principal); M50.323 Other cervical disc degeneration at C6-C7 level; M47.812 Spondylosis without myelopathy or radiculopathy, cervical region ==

== ENCOUNTER → 2023-07-25 | Outpatient (CLI) | payer MEDICARE | LOC: RAD 14:47 | DX: M25.511 Pain in right shoulder (principal) ==

== ENCOUNTER → 2023-12-19 | Outpatient (CLI) | payer MEDICARE | LOC: RAD 09:53 | DX: M47.817 Spondylosis without myelopathy or radiculopathy, lumbosacral region (principal); M51.37 Other intervertebral disc degeneration, lumbosacral region; U09.9 Post COVID-19 condition, unspecified ==

== ENCOUNTER → 2024-01-24 | Outpatient (CLI) | payer MEDICARE | LOC: LAB 08:48 | DX: Z85.46 Personal history of malignant neoplasm of prostate (principal) ==

== ENCOUNTER → 2024-03-12 | Outpatient (CLI) | payer MEDICARE | LOC: LAB 09:00 | DX: E11.9 Type 2 diabetes mellitus without complications (principal) ==

== ENCOUNTER → 2024-03-25 | Outpatient (CLI) | payer MEDICARE | LOC: RAD 08:47 | DX: M48.07 Spinal stenosis, lumbosacral region (principal); M47.816 Spondylosis without myelopathy or radiculopathy, lumbar region ==

== ENCOUNTER 2024-04-30 08:00 | Outpatient (RCR) | payer MEDICARE | END 2024-05-14 | LOC: PT | DX: M48.061 Spinal stenosis, lumbar region without neurogenic claudication (principal) ==

== ENCOUNTER → 2024-06-17 | Outpatient (CLI) | payer MEDICARE | LOC: LAB 09:16 | DX: E11.9 Type 2 diabetes mellitus without complications (principal) ==

== ENCOUNTER → 2024-09-03 | Outpatient (CLI) | payer MEDICARE | LOC: LAB 09:56 | DX: E11.9 Type 2 diabetes mellitus without complications (principal) ==

== ENCOUNTER → 2024-09-17 | Outpatient (CLI) | payer MEDICARE ==
[~2024-09-17] MED LIST changes: +Iohexol 300 - 100 ML VIAL IV ONE
[2024-09-17 08:32] LABS: BASO # 0.02 K/mm3 (0.02-0.10); EOS # 0.11 K/mm3 (0.04-0.40); EOS % 1.6 % (0.0-4.0); HEMATOCRIT 32.1 % (42.0-52.0); HEMOGLOBIN 10.2 g/dL (13.5-18.0); LYMPH# 0.72 K/mm3 (1.50-4.00); MEAN CELL VOLUME 96 fl (78-100); MEAN CORPUSCULAR HEMOGLOBIN 31 pg (27-31); MEAN CORPUSCULAR HGB CONC 32 g/dL (33-37); MEAN PLATELET VOLUME 10.5 fl (7.4-10.4); MONO # 0.58 K/mm3 (0.20-0.80); NEU # 5.57 K/mm3 (1.40-6.50); PLATELET COUNT 230 K/mm3 (130-400); RED BLOOD COUNT 3.33 M/mm3 (4.20-5.60); RED CELL DISTRIBUTION WIDTH 14.4 % (11.5-14.5); WHITE BLOOD COUNT 7.1 K/mm3 (4.8-10.8)
[2024-09-17 08:44] LABS: ALBUMIN 3.6 g/dL (3.4-4.8)
[2024-09-17 08:46] LABS: CALCIUM 9.8 mg/dL (8.3-10.5)
[2024-09-17 08:47] LABS: TOTAL PROTEIN 6.5 g/dL (6.2-8.1)
[2024-09-17 08:49] LABS: TOTAL BILIRUBIN 1.5 mg/dL (0.2-1.2)
== END ==
LOC: RAD 08:14 → LAB 08:14
PROVIDERS: Family Medicine
DX: D50.9 Iron deficiency anemia, unspecified (principal); I10 Essential (primary) hypertension; E03.9 Hypothyroidism, unspecified; S35.29 Injury of branches of celiac and mesenteric artery; R06.00 Dyspnea, unspecified
CPT/HCPCS: Q9967

== ENCOUNTER 2024-09-18 11:44 | Emergency (ER) | payer MEDICARE ==
[~2024-09-18] VITALS: Ht 172.7 cm; Wt 84.1 kg
[~2024-09-18 11:44] MED LIST changes: -Iohexol 300 - 100 ML VIAL IV ONE
[2024-09-18 12:33] LABS: BASO # 0.01 K/mm3 (0.02-0.10); EOS # 0.01 K/mm3 (0.04-0.40); EOS % 0.1 % (0.0-4.0); HEMATOCRIT 31.5 % (42.0-52.0); HEMOGLOBIN 10.3 g/dL (13.5-18.0); LYMPH# 0.75 K/mm3 (1.50-4.00); MEAN CELL VOLUME 94 fl (78-100); MEAN CORPUSCULAR HEMOGLOBIN 31 pg (27-31); MEAN CORPUSCULAR HGB CONC 33 g/dL (33-37); MEAN PLATELET VOLUME 10.4 fl (7.4-10.4); MONO # 0.56 K/mm3 (0.20-0.80); NEU # 10.79 K/mm3 (1.40-6.50); PLATELET COUNT 256 K/mm3 (130-400); RED BLOOD COUNT 3.36 M/mm3 (4.20-5.60); RED CELL DISTRIBUTION WIDTH 14.4 % (11.5-14.5); WHITE BLOOD COUNT 12.2 K/mm3 (4.8-10.8)
[2024-09-18 12:42] LABS: ALBUMIN 3.6 g/dL (3.4-4.8)
[2024-09-18 12:43] LABS: CALCIUM 9.7 mg/dL (8.3-10.5)
[2024-09-18 12:44] LABS: TOTAL PROTEIN 6.7 g/dL (6.2-8.1)
[2024-09-18 13:08] LABS: TROPONIN-I 0.047 ng/mL (0.00-0.033)
[2024-09-18 13:17] LABS: TOTAL BILIRUBIN 1.3 mg/dL (0.2-1.2)
[2024-09-18] MEDS ORDERED: Azithromycin 500 MG in NS 250 ML IV ONE (13:45)
[2024-09-18] MEDS ORDERED: cefTRIAXone 1 G in Water For Injection,Sterile 10 ML IV ONE (13:45)
[2024-09-18] MEDS ORDERED: Morphine 4 MG/ML VIAL IV ONE (17:00)
[2024-09-18 17:49] VITALS: BP 94/69
== END 2024-09-18 17:35 | disposition short-term general hospital (02) ==
LOC: ED 11:44
PROVIDERS: Family Medicine
DX: I21.4 Non-ST elevation (NSTEMI) myocardial infarction (principal); D72.829 Elevated white blood cell count, unspecified
CPT/HCPCS: J0456; J0696; J2270; J7050; J7120

== ENCOUNTER → 2024-10-13 | Outpatient (CLI) | payer MEDICARE ==
[2024-10-13 11:17] LABS: HEMATOCRIT 31.9 % (42.0-52.0); HEMOGLOBIN 9.7 g/dL (13.5-18.0); MEAN CELL VOLUME 91 fl (78-100); MEAN CORPUSCULAR HEMOGLOBIN 28 pg (27-31); MEAN CORPUSCULAR HGB CONC 30 g/dL (33-37); MEAN PLATELET VOLUME 9.9 fl (7.4-10.4); PLATELET COUNT 354 K/mm3 (130-400); RED CELL DISTRIBUTION WIDTH 16.7 % (11.5-14.5); WHITE BLOOD COUNT 9.2 K/mm3 (4.8-10.8)
[2024-10-13 11:27] LABS: ALBUMIN 2.9 g/dL (3.4-4.8)
[2024-10-13 11:29] LABS: CALCIUM 9.9 mg/dL (8.3-10.5)
[2024-10-13 11:30] LABS: TOTAL PROTEIN 6.7 g/dL (6.2-8.1)
[2024-10-13 11:32] LABS: TOTAL BILIRUBIN 1.3 mg/dL (0.2-1.2)
[2024-10-13 12:18] LABS: HYPOCHROMIA 1+; LYMPHOCYTE 4 % (20-51); MONOCYTE 2 % (3-10); NEUTROPHILS 93 % (42-75)
== END ==
LOC: LAB 10:58
PROVIDERS: Family Medicine
DX: I10 Essential (primary) hypertension (principal); E03.9 Hypothyroidism, unspecified; E11.9 Type 2 diabetes mellitus without complications

== ENCOUNTER → 2024-10-16 | Outpatient (CLI) | payer MEDICARE ==
[~2024-10-16] MED LIST changes: +Iohexol 300 - 100 ML VIAL IV ONE
[2024-10-16 10:24] LABS: URINE APPEARANCE CLEAR (CLEAR); URINE COLOR YELLOW (YELLOW)
[2024-10-16 10:25] LABS: PH-URINE 6.5 (5.0 - 8.0); URINE BILIRUBIN 1+ (NEGATIVE); URINE BLOOD NEGATIVE (NEGATIVE); URINE GLUCOSE TRACE (NEGATIVE); URINE KETONE NEGATIVE (NEGATIVE); URINE LEUKOCYTE ESTERASE NEGATIVE (NEGATIVE); URINE MUCUS PRESENT (NOT PRESENT); URINE NITRATE NEGATIVE (NEGATIVE); URINE PROTEIN(semi-quant) TRACE (NEGATIVE)
== END ==
LOC: RAD 08:57
PROVIDERS: Family Medicine
DX: S36.039D Unspecified laceration of spleen, subsequent encounter (principal); J90 Pleural effusion, not elsewhere classified; S36.899D Unspecified injury of other intra-abdominal organs, subsequent encounter; R41.0 Disorientation, unspecified
CPT/HCPCS: Q9967

== ENCOUNTER 2024-11-03 16:40 | Inpatient (IN) | payer MEDICARE ==
[~2024-11-03] VITALS: Ht 177.8 cm; Wt 71.1 kg
[~2024-11-03 16:40] MED LIST changes: -ACETAMINOPHEN500 M5 PO; -ASPIRIN E.C. 8181 MG; -COMPAZINE10 M2 PO; -CYCLOBENZ5 MG PO; -DESYREL DIVIDO150 M1 PO; -GABAPENTIN100 MG PO; -MAALOX MAXIMUM355 ML PO; -MIRALAX17 GM PO; -OXYCODONE HYDROC5 M1 PO; -PANTOPRAZOLE SO40 MG PO; -SENNA-GEN8.6 MG PO; -SERTRALINE HYDR25 MG PO; -TRAMADOL 50 MG TAB PO; -VESICARE10 MG PO; -WELLBUTRIN XL300 M1 PO; -ZOFRAN ODT4 MG PO; -ZYRTEC ALLERGY10 MG PO
[2024-11-03] MEDS ORDERED: Docusate Sodium 100 MG CAP PO SCH ×2 (17:11→21:00)
[2024-11-03] MEDS ORDERED: oxyCODONE 5 MG TAB PO PRN (17:15)
[2024-11-03] MEDS ORDERED: Ketorolac 30 MG/ML VIAL IV SCH (17:15)
[2024-11-03] MEDS ORDERED: Naloxone 0.4 MG/ML VIAL IV PRN (17:15)
[2024-11-03] MEDS ORDERED: Ondansetron 4 MG/2 ML VIAL IV PRN (17:30)
[2024-11-03] MEDS ORDERED: ASPIRIN E.C. 8181 MG (17:52)
[2024-11-03 17:56] VITALS: BP 131/79
[2024-11-03] MEDS ORDERED: NS 100 ML IV SCH (17:56)
[2024-11-03] MEDS ORDERED: Iohexol 300 - 100 ML VIAL IV ONE (17:56)
[2024-11-03] MEDS ORDERED: ACETAMINOPHEN500 M5 PO (17:57)
[2024-11-03] MEDS ORDERED: ZYRTEC ALLERGY10 MG PO (17:58)
[2024-11-03 18:19] LABS: ALBUMIN 2.8 g/dL (3.4-4.8); HEMATOCRIT 30.8 % (42.0-52.0); HEMOGLOBIN 9.2 g/dL (13.5-18.0); MEAN CELL VOLUME 87 fl (78-100); MEAN CORPUSCULAR HEMOGLOBIN 26 pg (27-31); MEAN CORPUSCULAR HGB CONC 30 g/dL (33-37); MEAN PLATELET VOLUME 9.7 fl (7.4-10.4); PLATELET COUNT 304 K/mm3 (130-400); RED BLOOD COUNT 3.54 M/mm3 (4.20-5.60); RED CELL DISTRIBUTION WIDTH 16.9 % (11.5-14.5); WHITE BLOOD COUNT 4.2 K/mm3 (4.8-10.8)
[2024-11-03 18:20] LABS: SODIUM 129 mmol/L (136-145)
[2024-11-03 18:21] LABS: CALCIUM 8.7 mg/dL (8.3-10.5)
[2024-11-03 18:22] LABS: GLUCOSE 91 mg/dL (75-110); TOTAL PROTEIN 6.1 g/dL (6.2-8.1)
[2024-11-03 18:23] LABS: CARBON DIOXIDE 24 mmol/L (23-31)
[2024-11-03 18:24] LABS: TOTAL BILIRUBIN 0.5 mg/dL (0.2-1.2)
[2024-11-03 18:27] LABS: AST-SGOT 22 U/L (5-34)
[2024-11-03 18:29] LABS: ALT/SGPT 23 U/L (0-55)
[2024-11-03 18:35] LABS: TROPONIN-I < 0.030 ng/mL (0.00-0.033)
[2024-11-03] MEDS ORDERED: cefTRIAXone 1 G in Water For Injection,Sterile 10 ML IV SCH (18:35)
[2024-11-03 18:56] LABS: BAND 2 % (0-10); LYMPHOCYTE 14 % (20-51); MONOCYTE 7 % (3-10); NEUTROPHILS 73 % (42-75)
[2024-11-03 18:57] LABS: HYPOCHROMIA 1+
--- NOTE | 2024-11-03 19:05 | NUR ---
Received report from Gera OLVERA
[2024-11-03] MEDS ORDERED: WELLBUTRIN XL300 M1 PO (19:19)
[2024-11-03] MEDS ORDERED: CYCLOBENZ5 MG PO (19:20)
[2024-11-03] MEDS ORDERED: GABAPENTIN100 MG PO (19:21)
[2024-11-03] MEDS ORDERED: MIRALAX17 GM PO (19:23)
[2024-11-03] MEDS ORDERED: MAALOX MAXIMUM355 ML PO (19:23)
[2024-11-03] MEDS ORDERED: PANTOPRAZOLE SO40 MG PO (19:24)
[2024-11-03] MEDS ORDERED: ZOFRAN ODT4 MG PO (19:24)
[2024-11-03] MEDS ORDERED: OXYCODONE HYDROC5 M1 PO (19:24)
[2024-11-03] MEDS ORDERED: SENNA-GEN8.6 MG PO (19:25)
[2024-11-03] MEDS ORDERED: SERTRALINE HYDR25 MG PO (19:25)
[2024-11-03] MEDS ORDERED: COMPAZINE10 M2 PO (19:25)
[2024-11-03] MEDS ORDERED: TRAMADOL 50 MG TAB PO (19:26)
[2024-11-03] MEDS ORDERED: VESICARE10 MG PO (19:26)
[2024-11-03] MEDS ORDERED: DESYREL DIVIDO150 M1 PO (19:26)
--- NOTE | 2024-11-03 19:30 | NUR ---
PT AMBULATED FROM CLINIC TO ROOM 308 FOR ACUTE STAY A DIRECT ADMIT OF DR DANIEL, YADI LUNA AND THIS NURSE IN TO ASSESS PT, PT REPORTS MINIMAL PAIN TO LLQ FROM PREVIOUS INJURY. PT ORIENTATED TO ROOM AND ASSESSMENTS COMPLETED, NO FURHTER NEEDS AT THIS TIME
--- NOTE | 2024-11-03 19:40 | NUR ---
Pt resting in bed, IV pain meds and antibiotics given. Pt request for some food because he has not eaten today. Pt was provided with chicken noddle soup, toast, jello and a sprite. Pt was educated to call for assitqanace when needing to get up, pt states understanding. Nurse also explaines the results of his labs and the CT results. Call light in reach of the pt when nurse leaves the room. Bed alarms on for safety.
[2024-11-03 20:00] VITALS: BP 135/84
--- NOTE | 2024-11-03 20:20 | NUR ---
Pt has at his meal that was provided. He has requested a shower, BOOMBOAT OPERATOR will assit while he is in the shower.
[2024-11-03] MEDS ORDERED: Polyethylene Glycol 3350 Powder 17 GM PACKET PO SCH (21:00)
[2024-11-03] MEDS ORDERED: Insulin Lispro (HumaLOG) SQ SCH (21:00)
[2024-11-03] MEDS ORDERED: Doxycycline Monohydrate 100 MG CAP PO SCH (21:00)
--- NOTE | 2024-11-03 23:40 | NUR ---
Pt called stafff to room and states" I was just sitting here and thinking that i normally take a sleeping pill at night and i didnt get one tonight. I can't sleep without it." Call placed to Zuleima RODRIGUEZ with request that pt Trazadone be restarted. Recived order.
[2024-11-03 23:56] VITALS: BP 136/71
[2024-11-04] VITALS (7 sets, daily range): BP systolic 108–136; BP diastolic 69–82
--- NOTE | 2024-11-04 07:10 | NUR ---
Report given to Wave RN
[2024-11-04 08:05] LABS: HEMATOCRIT 31.6 % (42.0-52.0); HEMOGLOBIN 9.8 g/dL (13.5-18.0); MEAN CELL VOLUME 86 fl (78-100); MEAN CORPUSCULAR HEMOGLOBIN 27 pg (27-31); MEAN CORPUSCULAR HGB CONC 31 g/dL (33-37); MEAN PLATELET VOLUME 9.2 fl (7.4-10.4); PLATELET COUNT 266 K/mm3 (130-400); RED BLOOD COUNT 3.68 M/mm3 (4.20-5.60); RED CELL DISTRIBUTION WIDTH 16.9 % (11.5-14.5); WHITE BLOOD COUNT 3.9 K/mm3 (4.8-10.8)
[2024-11-04 08:14] LABS: ALBUMIN 2.9 g/dL (3.4-4.8)
[2024-11-04 08:16] LABS: CALCIUM 9.5 mg/dL (8.3-10.5)
[2024-11-04 08:17] LABS: TOTAL PROTEIN 6.3 g/dL (6.2-8.1)
[2024-11-04 08:19] LABS: TOTAL BILIRUBIN 0.4 mg/dL (0.2-1.2)
[2024-11-04 08:45] LABS: LYMPHOCYTE 12 % (20-51); MONOCYTE 9 % (3-10); NEUTROPHILS 74 % (42-75)
[2024-11-04 10:01] LABS: URINE APPEARANCE CLEAR (CLEAR); URINE BILIRUBIN NEGATIVE (NEGATIVE); URINE BLOOD NEGATIVE (NEGATIVE); URINE COLOR YELLOW (YELLOW); URINE GLUCOSE NEGATIVE (NEGATIVE); URINE KETONE NEGATIVE (NEGATIVE); URINE LEUKOCYTE ESTERASE NEGATIVE (NEGATIVE); URINE NITRATE NEGATIVE (NEGATIVE); URINE PROTEIN(semi-quant) NEGATIVE (NEGATIVE); URINE WBC 0-1 /hpf (0-3)
[2024-11-04] MEDS ORDERED: Sertraline 50 MG TAB PO SCH (11:51)
[2024-11-04] MEDS ORDERED: buPROPion XL (24-HR ER) 150 MG TAB PO SCH (11:54)
[2024-11-04] MEDS ORDERED: Cetirizine 10 MG TAB PO SCH (11:54)
[2024-11-04] MEDS ORDERED: Cholecalciferol (Vit D3) 25 MCG (1,000 Units) TAB PO SCH (11:56)
[2024-11-04] MEDS ORDERED: Prochlorperazine 10 MG TAB PO PRN (12:00)
[2024-11-04] MEDS ORDERED: Cyclobenzaprine 10 MG TAB PO PRN (12:00)
[2024-11-04] MEDS ORDERED: Acetaminophen 500 MG TAB PO SCH (12:00)
[2024-11-04] MEDS ORDERED: Gabapentin 100 MG CAP PO PRN (12:00)
[2024-11-04] MEDS ORDERED: traMADol 50 MG TAB PO PRN (12:00)
--- NOTE | 2024-11-04 12:13 | NUR ---
Rounding complete. Pt in bed with daughter at bedside. Pt with concerns regarding not receiving home medications. An MCCONNELL notified. Pt reports he still does not feel well and is nauseaous. When asked if he let his nurse know pt states I dont remember, I have a hard time remembering all these things" Patient and daughter both state patient is not well enough or safe to go home. Pt reports he lives with his "lady friend, who helps look after him.
[2024-11-04] MEDS ORDERED: droPERidol 2.5 MG/ML 2 ML VIAL IV PRN (13:30)
--- NOTE | 2024-11-04 19:20 | NUR ---
Received report from Wave RN
--- NOTE | 2024-11-04 20:30 | NUR ---
Pt is laying in bed watching TV. Pt rates abdomen pain 3/10, pt has schduled Tylenol, asked if pt need pain meds before schduled pain meds. He stated that he thought he could wait. Pt asked what medications he was receiving at this time, explained what meds that were ordered. Pt is concerned that he is not receiving his "stroke med" When asked what med he is taking about but he is unable to say what it is. Explained to the pt that the provider would be contacted in the morning to try to figure out what home meds he is on, pt is agreeable to wait till moring. Nurse did go over what meds that were on his home med list. Pt was unable to recall the names of any meds he takes. Call light in reach of pt, when nurse leave room.
[2024-11-04] MEDS ORDERED: Mag/Al Hydrox/Simeth Susp 30 ML CUP PO SCH (21:00)
[2024-11-04] MEDS ORDERED: traZODone 50 MG TAB PO ONE (21:30)
[2024-11-04] MEDS ORDERED: traZODone 50 MG TAB PO SCH (23:45)
[2024-11-05 03:07] VITALS: BP 127/75
--- NOTE | 2024-11-05 03:15 | NUR ---
Pt calls and reports he is nauseated and has abdominal pain, he is requesting medication for it. in the time it took nurse to walk to med room and to the pt room pt has fallen asleep and nurse needs to shake pt several times before he woke up to take his medications. Pt rates his pain 4/10 and feels just horiable in his stomach. Pt takes medication and falls right back to sleep. Call light in reach of the pt.
[2024-11-05 06:11] LABS: BASO # 0.01 K/mm3 (0.02-0.10); EOS # 0.22 K/mm3 (0.04-0.40); EOS % 5.6 % (0.0-4.0); HEMATOCRIT 30.3 % (42.0-52.0); HEMOGLOBIN 9.1 g/dL (13.5-18.0); LYMPH# 0.63 K/mm3 (1.50-4.00); MEAN CELL VOLUME 86 fl (78-100); MEAN CORPUSCULAR HEMOGLOBIN 26 pg (27-31); MEAN CORPUSCULAR HGB CONC 30 g/dL (33-37); MEAN PLATELET VOLUME 9.3 fl (7.4-10.4); MONO # 0.47 K/mm3 (0.20-0.80); NEU # 2.57 K/mm3 (1.40-6.50); PLATELET COUNT 246 K/mm3 (130-400); RED BLOOD COUNT 3.52 M/mm3 (4.20-5.60); RED CELL DISTRIBUTION WIDTH 16.6 % (11.5-14.5); WHITE BLOOD COUNT 3.9 K/mm3 (4.8-10.8)
--- NOTE | 2024-11-05 06:11 | NUR ---
Pt has refused to wear his Cpap all night he states the mask needs work doone on it before he will wear it again.
--- NOTE | 2024-11-05 06:53 | NUR ---
Report given to Wave RN
[2024-11-05 07:10] VITALS: BP 122/76
[2024-11-05] MEDS ORDERED: Ketorolac 30 MG/ML VIAL IV SCH (08:00)
[2024-11-05 11:08] VITALS: BP 116/66
[2024-11-05 15:10] VITALS: BP 122/77
--- NOTE | 2024-11-05 18:35 | NUR ---
Pt is being treated for nausea. Pt reports sleeping better throughout the night. Pt is forgetful. Pt hasn't reported any nausea throughout the day.
[2024-11-05 19:10] VITALS: BP 120/68
--- NOTE | 2024-11-05 19:23 | NUR ---
Reprt received from Cyndy OLVERA. Patient sitting up in recliner. VACCINE CUSTOMER REPRESENTATIVE in to obtain V/S. Patient reports "I'm ready for my shower now". VACCINE CUSTOMER REPRESENTATIVE advised will accomadate after she obtains V/S for the floor. Patient A/O to self and and correct year. States place as the "[facility]" and Month as November. Easily reoriented to place and Month. Rates pain to LUQ area 2-3, decribes as nausea. TELE in place with HRR at 86. Assessment completed. Questions anwered. Chair alarm on, call light in reach.
--- NOTE | 2024-11-05 20:50 | NUR ---
HS medications administered. Patient refusing Miralax. States "I can't take that, it leaves a slime in my mouth". States he prefers milk of magnesia. Dr. Gruber notified. Order received to D/C Miralax and add MOM PRN. Patient advised of change.
[2024-11-05] MEDS ORDERED: MAGNESIUM HYDROXIDE PO PRN (21:15)
[2024-11-05 22:32] VITALS: BP 116/68
--- NOTE | 2024-11-05 22:55 | NUR ---
Called and requested something for anxiety and wanting SCD's removed. Dr. Gruber notified, order received for Xanax PRN. Scheduled Tylenol given at this time as well.
[2024-11-05] MEDS ORDERED: ALPRAZolam 0.5 MG TAB PO PRN (23:00)
--- NOTE | 2024-11-06 02:30 | NUR ---
Resting well. Opens eyes briefly for V/S and scheduled Toradol. No signs of distress. RR even and non-labored at 16. Bed alarm on. Call light in reach.
[2024-11-06 02:31] VITALS: BP 111/70
--- NOTE | 2024-11-06 07:08 | NUR ---
Report to Cyndy OLVERA.
[2024-11-06 07:41] VITALS: BP 122/78
--- NOTE | 2024-11-06 11:05 | NUR ---
THIS NURSE ASSESED PT. PT SEATED INHIS RECLINER, HE IS CALM, UN LABORED BREATHING. PT REPORTS HIS PAIN IS TOLERABLE THIS MORNING. PT PLANS TO TRANSITION TO SWINGBED.
== END 2024-11-06 12:00 | disposition swing bed (61) | DRG 393 ==
LOC: MED/SURG 16:40
PROVIDERS: ADMIT Family Medicine
DX: S36.029S Unspecified contusion of spleen, sequela (principal); J18.1 Lobar pneumonia, unspecified organism; E87.1 Hypo-osmolality and hyponatremia; E44.0 Moderate protein-calorie malnutrition; D64.9 Anemia, unspecified; E03.9 Hypothyroidism, unspecified; E11.8 Type 2 diabetes mellitus with unspecified complications; J44.9 Chronic obstructive pulmonary disease, unspecified; G47.33 Obstructive sleep apnea (adult) (pediatric); F03.90 Unspecified dementia, unspecified severity, without behavioral disturbance, psychotic disturbance, mood disturbance, and anxiety; Z95.2 Presence of prosthetic heart valve; I10 Essential (primary) hypertension; M19.90 Unspecified osteoarthritis, unspecified site; M50.33 Other cervical disc degeneration, cervicothoracic region; G56.03 Carpal tunnel syndrome, bilateral upper limbs; E78.5 Hyperlipidemia, unspecified; R74.01 Elevation of levels of liver transaminase levels; F32.A Depression, unspecified; G47.00 Insomnia, unspecified; H91.90 Unspecified hearing loss, unspecified ear; E66.9 Obesity, unspecified; R63.4 Abnormal weight loss; R53.81 Other malaise; Z79.84 Long term (current) use of oral hypoglycemic drugs; Z79.82 Long term (current) use of aspirin; Z79.52 Long term (current) use of systemic steroids; Z99.81 Dependence on supplemental oxygen; Z79.890 Hormone replacement therapy; Z85.46 Personal history of malignant neoplasm of prostate
CPT/HCPCS: J0696; J1885; Q9967

== ENCOUNTER → 2024-11-03 | Outpatient (CLI) | payer MEDICARE ==
[~2024-11-03] MED LIST changes: +ACETAMINOPHEN500 M5 PO; +ASPIRIN E.C. 8181 MG; +COMPAZINE10 M2 PO; +CYCLOBENZ5 MG PO; +DESYREL DIVIDO150 M1 PO; +GABAPENTIN100 MG PO; -Iohexol 300 - 100 ML VIAL IV ONE; +MAALOX MAXIMUM355 ML PO; +MIRALAX17 GM PO; +OXYCODONE HYDROC5 M1 PO; +PANTOPRAZOLE SO40 MG PO; +SENNA-GEN8.6 MG PO; +SERTRALINE HYDR25 MG PO; +TRAMADOL 50 MG TAB PO; +VESICARE10 MG PO; +WELLBUTRIN XL300 M1 PO; +ZOFRAN ODT4 MG PO; +ZYRTEC ALLERGY10 MG PO
[2024-11-03 13:54] LABS: ALBUMIN 3.1 g/dL (3.4-4.8)
[2024-11-03 13:55] LABS: CALCIUM 9.4 mg/dL (8.3-10.5)
[2024-11-03 13:56] LABS: TOTAL PROTEIN 6.8 g/dL (6.2-8.1)
[2024-11-03 13:58] LABS: TOTAL BILIRUBIN 0.6 mg/dL (0.2-1.2)
== END ==
LOC: LAB 13:20
PROVIDERS: Nurse Practitioner
DX: R74.01 Elevation of levels of liver transaminase levels (principal)

== ENCOUNTER 2024-11-06 10:26 | Inpatient (IN) | payer MEDICARE ==
[~2024-11-06] VITALS: Wt 73.5 kg
[~2024-11-06 10:26] MED LIST changes: +ACETAMINOPHEN500 M5 PO; +ASPIRIN E.C. 8181 MG; +COMPAZINE10 M2 PO; +CYCLOBENZ5 MG PO; +DESYREL DIVIDO150 M1 PO; +GABAPENTIN100 MG PO; +MAALOX MAXIMUM355 ML PO; +MIRALAX17 GM PO; +OXYCODONE HYDROC5 M1 PO; +PANTOPRAZOLE SO40 MG PO; +SENNA-GEN8.6 MG PO; +SERTRALINE HYDR25 MG PO; +TRAMADOL 50 MG TAB PO; +VESICARE10 MG PO; +WELLBUTRIN XL300 M1 PO; +ZOFRAN ODT4 MG PO; +ZYRTEC ALLERGY10 MG PO
[2024-11-06] MEDS ORDERED: Acetaminophen 500 MG TAB PO PRN ×2 (12:00→13:45)
[2024-11-06] MEDS ORDERED: traMADol 50 MG TAB PO PRN (12:15)
[2024-11-06] MEDS ORDERED: Gabapentin 100 MG CAP PO PRN (12:15)
[2024-11-06] MEDS ORDERED: Naloxone 0.4 MG/ML VIAL IV PRN (12:15)
[2024-11-06] MEDS ORDERED: Prochlorperazine 10 MG TAB PO PRN (12:15)
[2024-11-06] MEDS ORDERED: oxyCODONE 5 MG TAB PO PRN (12:15)
[2024-11-06] MEDS ORDERED: ALPRAZolam 0.5 MG TAB PO PRN (12:30)
[2024-11-06] MEDS ORDERED: tiZANidine 4 MG TABLET PO PRN (12:30)
[2024-11-06] MEDS ORDERED: Ketorolac 30 MG/ML VIAL IV PRN (12:30)
[2024-11-06] MEDS ORDERED: droPERidol 2.5 MG/ML 2 ML VIAL IV PRN (12:30)
[2024-11-06] MEDS ORDERED: Dextrose (Glucose) 15 GM (4 x 3.75 GM) Chewable TAB PACK PO PRN (13:15)
[2024-11-06] MEDS ORDERED: Dextrose 50% Water 25 GM/50 ML SYRINGE IV PRN (13:15)
[2024-11-06] MEDS ORDERED: Glucagon 1 MG VIAL IM PRN (13:15)
[2024-11-06] MEDS ORDERED: Insulin Lispro (HumaLOG) SQ SCH (17:00)
[2024-11-06 20:10] VITALS: BP 118/66
[2024-11-06] MEDS ORDERED: Doxycycline Monohydrate 100 MG CAP PO SCH (21:00)
[2024-11-06] MEDS ORDERED: Polyethylene Glycol 3350 Powder 17 GM PACKET PO SCH (21:00)
[2024-11-06] MEDS ORDERED: traZODone 50 MG TAB PO SCH (21:00)
[2024-11-06] MEDS ORDERED: Docusate Sodium 100 MG CAP PO SCH (21:00)
[2024-11-06] MEDS ORDERED: Cefdinir 300 MG CAP PO SCH (21:00)
[2024-11-06] MEDS ORDERED: Mag/Al Hydrox/Simeth Susp 30 ML CUP PO SCH (21:00)
[2024-11-07 08:17] LABS: EOS # 0.23 K/mm3 (0.04-0.40); EOS % 5.5 % (0.0-4.0); HEMATOCRIT 29.8 % (42.0-52.0); HEMOGLOBIN 8.8 g/dL (13.5-18.0); LYMPH# 0.66 K/mm3 (1.50-4.00); MEAN CELL VOLUME 87 fl (78-100); MEAN CORPUSCULAR HEMOGLOBIN 26 pg (27-31); MEAN CORPUSCULAR HGB CONC 30 g/dL (33-37); MEAN PLATELET VOLUME 9.5 fl (7.4-10.4); NEU # 2.84 K/mm3 (1.40-6.50); PLATELET COUNT 251 K/mm3 (130-400); RED BLOOD COUNT 3.42 M/mm3 (4.20-5.60); RED CELL DISTRIBUTION WIDTH 16.9 % (11.5-14.5); WHITE BLOOD COUNT 4.2 K/mm3 (4.8-10.8)
[2024-11-07 08:20] LABS: ALBUMIN 2.6 g/dL (3.4-4.8)
[2024-11-07 08:21] VITALS: BP 115/68
[2024-11-07 08:21] LABS: CALCIUM 8.7 mg/dL (8.3-10.5)
[2024-11-07 08:22] LABS: TOTAL PROTEIN 5.9 g/dL (6.2-8.1)
[2024-11-07 08:24] LABS: TOTAL BILIRUBIN 0.3 mg/dL (0.2-1.2)
[2024-11-07] MEDS ORDERED: Sertraline 50 MG TAB PO SCH (09:00)
[2024-11-07] MEDS ORDERED: buPROPion XL (24-HR ER) 150 MG TAB PO SCH (09:00)
[2024-11-07] MEDS ORDERED: Cholecalciferol (Vit D3) 25 MCG (1,000 Units) TAB PO SCH (09:00)
[2024-11-07] MEDS ORDERED: Cetirizine 10 MG TAB PO SCH (09:00)
[2024-11-07] MEDS ORDERED: Thiamine 100 MG TAB PO SCH (11:34)
[2024-11-07] MEDS ORDERED: Ibuprofen 200 MG TAB PO PRN (11:45)
[2024-11-07 19:59] VITALS: BP 120/70
[2024-11-08 07:32] VITALS: BP 129/70
[2024-11-08 19:00] VITALS: BP 133/74
[2024-11-09 08:27] VITALS: BP 131/83
[2024-11-09 19:00] VITALS: BP 135/79
[2024-11-10 07:40] VITALS: BP 141/83
[2024-11-10 19:38] VITALS: BP 121/76
[2024-11-11 07:30] VITALS: BP 123/77
[2024-11-11 19:00] VITALS: BP 134/70
[2024-11-12 07:17] LABS: ALBUMIN 2.8 g/dL (3.4-4.8); BASO # 0.01 K/mm3 (0.02-0.10); EOS # 0.33 K/mm3 (0.04-0.40); EOS % 7.5 % (0.0-4.0); LYMPH# 0.63 K/mm3 (1.50-4.00); MEAN CELL VOLUME 86 fl (78-100); MEAN CORPUSCULAR HEMOGLOBIN 26 pg (27-31); MEAN CORPUSCULAR HGB CONC 30 g/dL (33-37); MEAN PLATELET VOLUME 9.9 fl (7.4-10.4); MONO # 0.47 K/mm3 (0.20-0.80); NEU # 2.95 K/mm3 (1.40-6.50); PLATELET COUNT 205 K/mm3 (130-400); RED CELL DISTRIBUTION WIDTH 17.3 % (11.5-14.5); WHITE BLOOD COUNT 4.4 K/mm3 (4.8-10.8)
[2024-11-12 07:18] LABS: CALCIUM 9.2 mg/dL (8.3-10.5)
[2024-11-12 07:20] VITALS: BP 135/81
[2024-11-12 07:20] LABS: TOTAL PROTEIN 5.9 g/dL (6.2-8.1)
[2024-11-12 07:21] LABS: TOTAL BILIRUBIN 0.3 mg/dL (0.2-1.2)
[2024-11-12 19:00] VITALS: BP 132/64
[2024-11-13 07:00] VITALS: BP 128/80
== END 2024-11-13 13:05 | disposition home health service (06) | DRG 947 ==
LOC: MED/SURG 10:26
PROVIDERS: ADMIT Family Medicine
DX: R53.81 Other malaise (principal); J18.9 Pneumonia, unspecified organism; E87.1 Hypo-osmolality and hyponatremia; E11.9 Type 2 diabetes mellitus without complications; Z79.84 Long term (current) use of oral hypoglycemic drugs; I10 Essential (primary) hypertension; Z79.899 Other long term (current) drug therapy; E78.5 Hyperlipidemia, unspecified; Z79.890 Hormone replacement therapy; E66.9 Obesity, unspecified; F32.A Depression, unspecified; G47.33 Obstructive sleep apnea (adult) (pediatric); D64.9 Anemia, unspecified; G89.18 Other acute postprocedural pain
CPT/HCPCS: J1815

== ENCOUNTER 2024-12-13 09:38 | Emergency (ER) | payer MEDICARE ==
[~2024-12-13] VITALS: Ht 177.8 cm; Wt 82.0 kg
[2024-12-13] MEDS ORDERED: SOLIFENACIN SUC10 MG PO (10:26)
[2024-12-13 10:43] LABS: EOS # 0.22 K/mm3 (0.04-0.40); EOS % 4.1 % (0.0-4.0); HEMATOCRIT 36.6 % (42.0-52.0); LYMPH# 0.75 K/mm3 (1.50-4.00); MEAN CELL VOLUME 89 fl (78-100); MEAN CORPUSCULAR HEMOGLOBIN 27 pg (27-31); MEAN CORPUSCULAR HGB CONC 30 g/dL (33-37); MEAN PLATELET VOLUME 10.5 fl (7.4-10.4); MONO # 0.41 K/mm3 (0.20-0.80); NEU # 4.04 K/mm3 (1.40-6.50); PLATELET COUNT 146 K/mm3 (130-400); WHITE BLOOD COUNT 5.4 K/mm3 (4.8-10.8)
[2024-12-13 10:51] LABS: CALCIUM 9.4 mg/dL (8.3-10.5)
[2024-12-13 11:08] VITALS: BP 138/78
== END 2024-12-13 11:12 | disposition home or self-care (01) ==
LOC: ED 09:38
PROVIDERS: Family Medicine
DX: I10 Essential (primary) hypertension (principal); J06.9 Acute upper respiratory infection, unspecified

== ENCOUNTER 2024-12-16 08:36 | Outpatient (RCR) | payer MEDICARE ==
[~2024-12-16 08:36] MED LIST changes: +SOLIFENACIN SUC10 MG PO
== END 2025-01-01 14:46 | disposition still patient (30) ==
LOC: PT 08:36
DX: R53.1 Weakness (principal)